=== PATIENT | male | born 1970 | race Hispanic/Latino ===

== ENCOUNTER 2018-01-06 23:45 | Emergency (ER) | payer SELFPAY ==
[2018-01-07 00:06] LABS: #Eosinphils 0.1 thou/uL (0.0-0.7); #Lymphocytes 1.8 thou/uL (1.20-3.40); #Monocytes 0.7 thou/uL (0.11-0.59); #Neutrophils 6.8 thou/uL (1.40-6.50); %Basophils 0.3 % (0.0-1.0); %Eosinophils 0.7 % (0.0-10.0); %Lymphocytes 19.4 % (21.0-51.0); %Monocytes 7.3 % (0.0-10.0); %Neutrophils 72.3 % (42.0-75.0); Hemoglobin 14.6 g/dL (14.0-18.0); Mean Corpuscular HGB CONC 33.4 g/dL (32.0-36.0); Mean Corpuscular Hemoglobin 29.1 pg (27.0-31.0); Mean Corpuscular Volume 87.2 fl (80.0-94.0); Mean Platelet Volume 8.1 fL (7.4-10.4); Platelet Count 215 thou/uL (130-400); RBC Distribution Width 12.1 % (11.5-14.5); Red Blood Cell (RBC) Count 5.02 mill/uL (4.70-6.10); White Blood Cell (WBC) Count 9.4 thou/uL (4.8-10.8)
[2018-01-07 00:27] LABS: ALT (SGPT) 12 U/L (8-55); AST (SGOT) 16 U/L (5-34); Albumin 4.3 g/dL (3.5-5.0); Alkaline Phosphatase 57 U/L (40-150); Anion Gap 15 mmol/L (10-20); BUN (Urea Nitrogen) 11 mg/dL (8.9-20.6); Bilirubin, Total 0.7 mg/dL (0.2-1.2); CK (CPK) 83 U/L (30-200); Calc. Creatinine Clearance 0 mL/min (70-130); Calcium 9.2 mg/dL (7.8-10.44); Carbon Dioxide 25 mmol/L (22-29); Chloride 106 mmol/L (98-107); Estimated GFR-MDRD Greater than 90; Globulin 2.8 g/dL (2.4-3.5); Glucose 132 mg/dL (70-105); Potassium 3.2 mmol/L (3.5-5.1); Protein, Total 7.1 g/dL (6.0-8.3); Sodium 143 mmol/L (136-145)
[2018-01-07 00:30] LABS: CKMB 1.8 ng/mL (0-6.6); Troponin I Less than 0.010 ng/mL (< 0.028)
--- NOTE | 2018-01-07 08:14 | RAD ---
FRONTAL VIEW CHEST: Date: 01/06/18 No prior comparison. INDICATION: Chest pain. FINDINGS: Lungs are hyperinflated and lucent. Cardiac silhouette is within normal limits of size for portable t echnique. There is no consolidation, effusion, or discrete pneumothorax. Leads overlie the chest, hills iting detail. There is mild osseous degenerative change. IMPRESSION: Hyperinflated lucent lungs. Correlate for chronic obstructive airway process. Follow-up with dedicate d 2 view chest may prove useful for further evaluation. POS: JAQUELIN
--- NOTE | 2018-01-19 11:45 | EKG ---
Test Reason : CP Blood Pressure : / mmHG Vent. Rate : 108 BPM Atrial Rate : 108 BPM P-R Int : 134 ms QRS Dur : 080 ms QT Int : 346 ms P-R-T Axes : 044 015 033 degrees QTc Int : 463 ms Sinus tachycardia Otherwise normal ECG Confirmed by NABEEL SOUZA, RILEY Butler ([id number]), business editor DAVID PAYNE ([id number]) on 01/19/2018 11:44:17 AM Referred By: Confirmed By:RILEY LEES MD
== END 2018-01-07 01:30 | disposition home or self-care (01) ==
LOC: ERS 23:45
DX: F41.9 Anxiety disorder, unspecified (principal)
CPT/HCPCS: 71045; 80053; 82553; 84484; 85025; 93005

== ENCOUNTER 2018-01-11 01:46 | Observation (INO) | payer SELFPAY ==
[2018-01-11 02:18] LABS: #Basophils 0.1 thou/uL (0.0-0.2); #Eosinphils 0.1 thou/uL (0.0-0.7); #Lymphocytes 2.4 thou/uL (1.20-3.40); #Monocytes 0.7 thou/uL (0.11-0.59); #Neutrophils 5.7 thou/uL (1.40-6.50); %Basophils 0.8 % (0.0-1.0); %Eosinophils 1.4 % (0.0-10.0); %Lymphocytes 26.7 % (21.0-51.0); %Monocytes 7.9 % (0.0-10.0); %Neutrophils 63.2 % (42.0-75.0); Hemoglobin 14.8 g/dL (14.0-18.0); Mean Corpuscular HGB CONC 34.7 g/dL (32.0-36.0); Mean Corpuscular Hemoglobin 30.5 pg (27.0-31.0); Mean Corpuscular Volume 87.9 fl (80.0-94.0); Mean Platelet Volume 8.4 fL (7.4-10.4); Platelet Count 208 thou/uL (130-400); RBC Distribution Width 12.2 % (11.5-14.5); Red Blood Cell (RBC) Count 4.86 mill/uL (4.70-6.10)
[2018-01-11 02:48] LABS: ALT (SGPT) 14 U/L (8-55); AST (SGOT) 22 U/L (5-34); Albumin 4.4 g/dL (3.5-5.0); Alkaline Phosphatase 59 U/L (40-150); Anion Gap 12 mmol/L (10-20); BUN (Urea Nitrogen) 14 mg/dL (8.9-20.6); Calc. Creatinine Clearance 0 mL/min (70-130); Carbon Dioxide 27 mmol/L (22-29); Chloride 105 mmol/L (98-107); Estimated GFR-MDRD Greater than 90; Globulin 2.6 g/dL (2.4-3.5); Glucose 76 mg/dL (70-105); Potassium 3.4 mmol/L (3.5-5.1); Sodium 141 mmol/L (136-145)
[2018-01-11 02:52] LABS: CKMB 4.4 ng/mL (0-6.6); Troponin I Less than 0.010 ng/mL (< 0.028)
[2018-01-11] MEDS ORDERED: Nitroglycerin 0.4 MG TAB (25 Tab Bottle) ONE (02:53)
[2018-01-11] MEDS ORDERED: Morphine 4 MG/ML VIAL ONE (03:04)
[2018-01-11] MEDS ORDERED: Ondansetron ODT 4 MG TAB SL PRN (04:16)
[2018-01-11] MEDS ORDERED: Ondansetron HCl/PF 4 MG/2 ML Vial IVP PRN ×2 (04:16→04:17)
[2018-01-11] MEDS ORDERED: Acetaminophen 325 MG TAB PO PRN ×2 (04:16→04:17)
[2018-01-11] MEDS ORDERED: Nitroglycerin 0.4 MG TAB (25 Tab Bottle) PO PRN (04:17)
[2018-01-11] MEDS ORDERED: traMADol HCl 50 MG TAB PO PRN (04:17)
[2018-01-11] MEDS ORDERED: Diabetic Tussin 200 MG/10 ML UDCUP PO PRN (04:17)
[2018-01-11] MEDS ORDERED: Loratadine 10 MG TAB PO PRN (04:17)
[2018-01-11] MEDS ORDERED: Lorazepam 1 MG TAB PO PRN (04:17)
[2018-01-11] MEDS ORDERED: Mag-Al 1200 mg/1200 mg/30 ML UDCUP PO PRN (04:17)
[2018-01-11] MEDS ORDERED: Benzonatate 100 MG CAP PO PRN (04:17)
[2018-01-11] MEDS ORDERED: Senokot 8.6 MG TAB PO PRN (04:17)
[2018-01-11] MEDS ORDERED: Calcium Carbonate 500 MG ChewTAB PO PRN (04:17)
[2018-01-11] MEDS ORDERED: Nitroglycerin 0.4 MG TAB (25 Tab Bottle) SL PRN (04:17)
[2018-01-11] MEDS ORDERED: Bisacodyl 5 MG TAB PO PRN (04:17)
[2018-01-11] MEDS ORDERED: hydrALAZINE 20 MG/ML VIAL SLOW IVP PRN (04:17)
[2018-01-11] MEDS ORDERED: cloNIDine 0.1 MG TAB PO PRN (04:17)
[2018-01-11 05:36] LABS: Cardiac Risk 2.8 (Less than 4.5)
[2018-01-11 05:42] LABS: Troponin I Less than 0.010 ng/mL (< 0.028)
--- NOTE | 2018-01-11 05:58 | HP ---
DATE OF ADMISSION: 01/11/2018 PRIMARY CARE PHYSICIAN: None. CHIEF COMPLAINT: Chest pressure and anxiety. HISTORY OF PRESENT ILLNESS: Mr. Vazquez is a 47-year-old male with past medical history of hypertension, currently not on any medications, who presented to the emergency room with above-menti oned complaint. History is mainly obtained by the patient himself. He is a poor historian because o f the language barrier. Electronic medical records have been reviewed and the case has been discusse d with admitting ER physician, Dr. Almanza. According to Mr. Vazquez, he was asleep and he suddenly woke up with the chest pressure-like sensati on. It was associated with some shortness of breath and some numbness, tingling of his fingers. To the ER physician, he reported that he has been having these episodic chest pressure and pain-like sen sation for the last 5 days. He was recently seen in the emergency room and was sent home with ivy henson for anxiety. He reports that he is still having these symptoms and the lorazepam is not working. He otherwise denies any recent illnesses. No nausea, vomiting, diarrhea. No fever, chills, flu-li ke illnesses. He never had any cardiac workup done. He does have some family history of heart disease in his broth er, but is not able to exactly tell me as to what it is. Upon presentation to the emergency room, he was somewhat hypertensive; however, the blood pressure 147/97. His initial workup included a 12-yolanda d EKG, which was negative for any acute changes and cardiac enzymes, which were within normal limit. He is now being admitted for further workup and rule out ACS. He has received aspirin, sublingual n itroglycerin, morphine in the emergency room and is currently symptom free. PAST MEDICAL HISTORY: 1. Anxiety. 2. Hypertension. PAST SURGICAL HISTORY: None reviewed with the patient. PSYCHIATRIC HISTORY: Anxiety. SOCIAL HISTORY: He used to smoke a long time ago, but not anymore. No history of drug or alcohol ab use. FAMILY HISTORY: Significant for heart disease in his brother. ALLERGIES: No known medication allergies. CURRENT MEDICATIONS: Lexapro 10 mg daily and Ativan 1 mg oral every 6 hours as needed. REVIEW OF SYSTEMS: The following complete review of systems was negative, unless otherwise mentioned in the HPI or below: Constitutional: Weight loss or gain, ability to conduct usual activities. Skin: Rash, itching. Eyes: Double vision, pain. ENT/Mouth: Nose bleeding, neck stiffness, pain, tenderness. Cardiovascular: Palpitations, dyspnea on exertion, orthopnea. Respiratory: Shortness of breath, wheezing, cough, hemoptysis, fever or night sweats. Gastrointestinal: Poor appetite, abdominal pain, heartburn, nausea, vomiting, constipation, or diarr hea. Genitourinary: Urgency, frequency, dysuria, nocturia. Musculoskeletal: Pain, swelling. Neurologic/Psychiatric: Anxiety, depression. Allergy/Immunologic: Skin rash, bleeding tendency. It is negative except for those mentioned in the history and physical. PHYSICAL EXAMINATION: VITAL SIGNS: Most recent temperature 97.7, pulse of 92, respirations 18, saturating 97% on room air, blood pressure 141/86. GENERAL: No acute distress, lying comfortably in bed, awake, alert, oriented x3. HEENT: Mucous membrane is moist and pink. No oropharyngeal exudate or erythema. Head is normocepha lic, atraumatic. Pupils equal, reactive to light and accommodation. Extraocular movement intact. NECK: Supple without any lymphadenopathy, JVD or bruit. CHEST: Clear to auscultation without any wheezing, rales, or rhonchi. CARDIOVASCULAR: Rate and rhythm is regular without any murmur, rubs, or gallops. ABDOMEN: Soft, nontender, nondistended with positive bowel sounds. No guarding, rebound or rigidity . No right upper quadrant tenderness. EXTREMITIES: Free of any cyanosis, clubbing, or edema. NEUROLOGIC: Nonfocal. SKIN: Free of any rashes or bruises. Feel warm and dry to touch. PSYCHIATRIC: Normal affect. LABORATORY DATA: CBC is unremarkable. Serum chemistry shows potassium of 3.4, otherwise unremarkabl e. CK-MB 4.4, troponin less than 0.010. Chest x-ray by my review has no evidence to suggest any ple ural effusion, edema, or infiltrate. A 12-lead EKG shows normal sinus rhythm at 87 beats per minute without any acute ST or T-wave changes. IMPRESSION AND PLAN: 1. Chest pain, most likely related to his anxiety. Given some family history and history of untreat ed hypertension: The patient will be admitted under observation status for workup for acute coronary syndrome. We will go ahead and obtain a nuclear medicine stress test and continued to trend serial cardiac enzymes. The patient never had any risk stratification done in the past. Also check a lipid panel. We will add full dose aspirin for now, also add low dose beta patsy to help with his blood pressure and for his cardioprotective effects as well. We will also give him a trial of proton pump inhibitor to see if his symptoms are related to any heartburn, though he denies the symptoms. 2. Anxiety. Use Ativan as needed. We will restart his Lexapro as well. He is encouraged to follow up with the primary care physician after discharge. 3. Deep venous thrombosis and gastrointestinal prophylaxis. 4. Add p.r.n. medication order. DISPOSITION: Mr. Vazquez is being admitted under observation status for chest pain workup and rule out acute coronary syndrome. He is currently hemodynamically stable. Further management will depend upon his clinical course.
[2018-01-11 07:37] LABS: Acetaminophen Less than 6.0 mcg/mL (10.0-30.0); Alcohol Less than 10 mg/dL (Less than 10); Salicylate Less than 8.0 mg/dL (15.0-30.0)
[2018-01-11 08:23] LABS: Troponin I Less than 0.010 ng/mL (< 0.028)
[2018-01-11] MEDS ORDERED: Escitalopram Oxalate 10 mg Tablet PO SCH (09:00)
[2018-01-11] MEDS ORDERED: Metoprolol Tartrate 25 MG TAB PO SCH (09:00)
[2018-01-11] MEDS ORDERED: Enoxaparin Sodium 40 MG/0.4 ML SYRINGE SC SCH (09:00)
[2018-01-11] MEDS ORDERED: Aspirin 325 MG TAB PO SCH (09:00)
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
--- NOTE | 2018-01-11 11:30 | NM ---
MYOCARDIAL PERFUSION STUDY: DATE: 01/11/18. HISTORY: Chest pain. RADIOPHARMACEUTICALS: 33 mCi Technetium 99m sestamibi, IV at stress, and 10.9 mCi Technetium 99m sestamibi, IV at rest. MEDICATIONS: 11.8 mL (35.3 mg) adenosine, IV. FINDINGS: There is distribution of radiotracer seen throughout the left ventricular myocardium on the stress ac quisition. No reversible defects are seen between the stress and resting acquisitions. Quantitative analysis shows no significant reversible defect. Gated images show normal ventricular wall motion a nd wall thickening aside from minimal hyperkinesis in the region of the ventricular septum. The left ventricular ejection fraction is 66%. IMPRESSION: 1. Normal myocardial perfusion study without evidence of a reversible defect seen to suggest ischemi a. 2. Normal left ventricular ejection fraction of 66%. POS: JAQUELIN
--- NOTE | 2018-01-11 11:44 | PDOC.PN ---
- Subjective Encounter Start Date: 01/11/18 Encounter Start Time: 11:00 Subjective: no c/o sob or chest pain now -: feels good -: /family at bedside - Objective MAR Reviewed: Yes Vital Signs & Weight: Vital Signs (12 hours) Temp Pulse Resp BP Pulse Ox 01/11/18 08:00 97.7 F 92 18 01/11/18 07:09 96 01/11/18 04:10 97.7 F 92 18 141/86 H 97 Weight Weight 138 lb Result Diagrams: 01/11/18 02:00 01/11/18 02:00 Phys Exam - Physical Examination HEENT: PERRLA, moist MMs Neck: no JVD, supple Respiratory: no wheezing, no rales Cardiovascular: RRR, no significant murmur Gastrointestinal: soft, non-tender, positive bowel sounds Musculoskeletal: no edema, pulses present Neurological: non-focal, moves all 4 limbs Psychiatric: A&O x 3 Dx/Plan (1) Chest pain Code(s): R07.9 - CHEST PAIN, UNSPECIFIED Status: Acute Qualifiers: Chest pain type: unspecified Qualified Code(s): R07.9 - Chest pain, unspecified (2) HTN (hypertension) Code(s): I10 - ESSENTIAL (PRIMARY) HYPERTENSION Status: Chronic Qualifiers: Hypertension type: essential hypertension Qualified Code(s): I10 - Essential (primary) hypertension (3) Anxiety Code(s): F41.9 - ANXIETY DISORDER, UNSPECIFIED Status: Chronic - Plan hemostable -: stress test is -ve -: counselled to f/u at [facility] reg anxiety issues * . Review of Systems - Medications/Allergies Allergies/Adverse Reactions: Allergies Allergy/AdvReac Type Severity Reaction Status Date / Time No Known Drug Allergies Allergy Verified 01/11/18 04:43 Medications: Current Medications Acetaminophen (Tylenol) 650 mg PO Q4H PRN PRN Reason: Headache/Fever or Pain Al Hydroxide/Mg Hydroxide (Maalox) 30 ml PO Q6H PRN PRN Reason: Heartburn or Indigestion Aspirin (Aspirin) 325 mg PO DAILY [facility] Last Admin: 01/11/18 10:45 Dose: 325 mg Benzonatate (Tessalon) 100 mg PO Q4H PRN PRN Reason: Cough Bisacodyl (Dulcolax) 10 mg PO DAILYPRN PRN PRN Reason: Constipation Calcium Carbonate (Tums) 1,000 mg PO Q4H PRN PRN Reason: Heartburn or Indigestion Clonidine (Catapres) 0.1 mg PO Q4H PRN PRN Reason: Systolic BP > 160 Enoxaparin Sodium (Lovenox) 40 mg SC 0900 [facility] [place] Last Admin: 01/11/18 10:44 Dose: 40 mg Escitalopram Oxalate (Lexapro) 10 mg PO DAILY [facility] [place] Last Admin: 01/11/18 10:45 Dose: 10 mg Guaifenesin (Robitussin Sf) 200 mg PO Q4H PRN PRN Reason: Cough Hydralazine HCl (Apresoline) 10 mg SLOW IVP Q4H PRN PRN Reason: Systolic BP > 180 Loratadine (Claritin) 10 mg PO DAILYPRN PRN PRN Reason: Sinus Symptoms Lorazepam (Ativan) 1 mg PO Q4H PRN PRN Reason: Anxiety/Agitation Metoprolol Tartrate (Lopressor) 12.5 mg PO BID [facility] [place] Last Admin: 01/11/18 10:44 Dose: 12.5 mg Nitroglycerin (Nitrostat) 0.4 mg PO Q5MIN PRN PRN Reason: Chest Pain Nitroglycerin (Nitrostat) 0.4 mg SL Q5MIN PRN PRN Reason: Chest Pain Ondansetron HCl (Zofran) 4 mg IVP Q6H PRN PRN Reason: Nausea/Vomiting Senna (Senokot) 2 tab PO HSPRN PRN PRN Reason: Constipation Sodium Chloride (Flush - Normal Saline) 10 ml IVF Q12HR [facility] [place] Last Admin: 01/11/18 10:45 Dose: 10 ml Sodium Chloride (Flush - Normal Saline) 10 ml IVF PRN PRN PRN Reason: Saline Flush Sodium Chloride (Flush - Normal Saline) 10 ml IVF PRN PRN PRN Reason: Saline Flush Tramadol HCl (Ultram) 50 mg PO Q4H PRN PRN Reason: Moderate Pain (4-6)
[2018-01-11 12:52] VITALS: BP 127/74; TEMP 98.4
[2018-01-11] MEDS ORDERED: ADENOSINE 60 MG/20 ML VIAL ONE (16:42)
--- NOTE | 2018-01-11 21:20 | DIS ---
DATE OF ADMISSION: 01/11/2018 DATE OF DISCHARGE: 01/11/2018 DISCHARGE DISPOSITION: To home. PRIMARY DISCHARGE DIAGNOSIS: Chest pain, which is noncardiac. SECONDARY DISCHARGE DIAGNOSES: Mild hypertension, anxiety/mood disorder. PROCEDURES DONE DURING HOSPITALIZATION: The patient has had 3 sets of troponin done which was negati ve. LDL is 75. Nuclear stress test done showed no reversible or fixed defect. Ejection fraction wa s 66%. Chest x-ray done showed no acute cardiopulmonary process. DISCHARGE MEDICATIONS: The patient to continue his home medication of Lexapro 10 mg p.o. daily. DISCHARGE PLAN: The patient to follow up with primary care physician in 1 week. BRIEF COURSE DURING HOSPITALIZATION: The patient initially got admitted early this morning with comp laints of chest pressure. He also had revealed that he has anxiety issues as well. The patient was placed under observation on telemetry and has had ACS evidence based protocol followed. Three sets o f troponin were negative and a nuclear stress test done showed no reversible ischemia. He has been c ounseled to follow up with his primary care physician in 1 week for further medications and help with his anxiety/mood disorder. His systolic blood pressure has remained around 120s to 140s and no medi cations have been given for the same for now. Please see a face to face documentation on [employer] fo r the day of discharge.
--- NOTE | 2018-03-04 15:26 | STRESS ---
Acquisition Time: 2018-01-11 09:15:21 Total Exercise Time: 00:04:00 Test Indications: CHEST PAIN Medications: Protocol: ADENOSINE Max HR: 108 BPM 62% of Pred: 172 BPM Max BP: 134/062 mmHG Max Work Load: 1.0 METS RESTING ECG: NORMAL SINUS RHYTHM AT 88 BPM WITH INCOMPLETE RIGHT BUNDLE BRANCH BLOCK SYMPTOMS: CHEST PRESSURE, DYSPNEA AND HEADACHE NORMAL BP RESPONSE ECTOPY: NONE ECG STRESS: NO SIGNIFICANT CHANGES INTERPRETATION: NEGATIVE ECG/AWAIT NUCLEAR IMAGES FOR DEFINITIVE DIAGNOSIS Confirmed by MATA ORTIZ ELLEN ([id number]) on 03/04/2018 3:25:35 PM Referred By: MD Herminio HANEY Confirmed By:AMINA ORTIZ PA-C
--- NOTE | 2018-05-30 14:29 | EKG ---
Test Reason : Blood Pressure : / mmHG Vent. Rate : 087 BPM Atrial Rate : 087 BPM P-R Int : 140 ms QRS Dur : 080 ms QT Int : 378 ms P-R-T Axes : 036 018 035 degrees QTc Int : 454 ms Normal sinus rhythm Normal ECG Confirmed by CRISTOBAL MENDEZ MD ([id number]), department editor DAVID PAYNE ([id number]) on 05/30/2018 2:28:35 PM Referred By: Confirmed By:CRISTOBAL MENDEZ MD
== END 2018-01-11 12:51 | disposition home or self-care (01) ==
LOC: ERS 01:46 → 2SW 04:04
PROVIDERS: ADMIT Internal Medicine; ATTEND Internal Medicine
DX: R07.89 Other chest pain (principal); I10 Essential (primary) hypertension; F41.9 Anxiety disorder, unspecified; F39 Unspecified mood [affective] disorder; Z79.899 Other long term (current) drug therapy; Z87.891 Personal history of nicotine dependence; Z82.49 Family history of ischemic heart disease and other diseases of the circulatory system
CPT/HCPCS: 36415; 71045; 78452; 80053; 80061; 80307; 82553; 84484; 85025; 93005; 93017; 94760; 96372; 96374; A4216; A9500; J0153; J1650; J2270

== ENCOUNTER 2018-08-28 06:22 | Emergency (ER) | payer SELFPAY ==
[2018-08-28 07:34] LABS: #Lymphocytes 0.9 thou/uL (1.20-3.40); #Monocytes 0.4 thou/uL (0.11-0.59); %Basophils 0.5 % (0.0-1.0); %Eosinophils 0.5 % (0.0-10.0); %Lymphocytes 13.8 % (21.0-51.0); %Monocytes 5.9 % (0.0-10.0); %Neutrophils 79.2 % (42.0-75.0); Hemoglobin 15.3 g/dL (14.0-18.0); Mean Corpuscular HGB CONC 31.9 g/dL (32.0-36.0); Mean Corpuscular Hemoglobin 28.4 pg (27.0-31.0); Mean Platelet Volume 8.4 fL (7.4-10.4); Platelet Count 247 thou/uL (130-400); RBC Distribution Width 12.2 % (11.5-14.5); Red Blood Cell (RBC) Count 5.39 mill/uL (4.70-6.10); White Blood Cell (WBC) Count 6.4 thou/uL (4.8-10.8)
[2018-08-28] MEDS ORDERED: Lorazepam 2 MG/ML VIAL ONE (07:40)
[2018-08-28 07:59] LABS: Bilirubin Negative (Negative); Blood, Urine Negative (Negative); Clarity CLEAR (Clear); Glucose, Urine (Dipstick) Negative (Negative); Leukocyte Negative (Negative); Nitrite Negative (Negative); Protein, Urine (Dipstick) Negative (Neg-Trace); Specific Gravity, Urine 1.009 (1.002-1.036); Urobilinogen 0.2 mg/dL (0.2-1.0)
[2018-08-28 08:00] LABS: ALT (SGPT) 15 U/L (8-55); AST (SGOT) 18 U/L (5-34); Albumin 4.7 g/dL (3.5-5.0); Alkaline Phosphatase 63 U/L (40-150); Anion Gap 12 mmol/L (10-20); BUN (Urea Nitrogen) 11 mg/dL (8.9-20.6); Bilirubin, Total 0.8 mg/dL (0.2-1.2); CK (CPK) 127 U/L (30-200); Calc. Creatinine Clearance 0 mL/min (70-130); Calcium 9.6 mg/dL (7.8-10.44); Carbon Dioxide 28 mmol/L (22-29); Chloride 103 mmol/L (98-107); Estimated GFR-MDRD Greater than 90; Glucose 141 mg/dL (70-105); Potassium 3.8 mmol/L (3.5-5.1); Protein, Total 7.7 g/dL (6.0-8.3); Sodium 139 mmol/L (136-145)
[2018-08-28 08:03] LABS: Acetaminophen Less than 6.0 mcg/mL (10.0-30.0); Alcohol Less than 10 mg/dL (Less than 10); CKMB 3.2 ng/mL (0-6.6); Salicylate Less than 8.0 mg/dL (15.0-30.0); Troponin I Less than 0.010 ng/mL (< 0.028)
[2018-08-28 08:06] LABS: Amphetamine Not Detected (NotDetected); Barbiturates Screen Not Detected (NotDetected); Benzodiazepine Screen Not Detected (NotDetected); Cocaine Metabolite Screen Not Detected (NotDetected); Medtox Control Line Valid? VALID (VALID); Medtox Reader # READER 1; Methadone Not Detected (NotDetected); Methamphetamine Not Detected (NotDetected); Opiate Screen Not Detected (NotDetected); Oxycodone Screen Not Detected (NotDetected); Phencyclidine (PCP) Not Detected (NotDetected); THC/Cannabinoid Screen Not Detected (NotDetected); Tricyclic Screen Not Detected (NotDetected)
--- NOTE | 2018-08-31 12:17 | EKG ---
Test Reason : DIZZINESS Blood Pressure : / mmHG Vent. Rate : 086 BPM Atrial Rate : 086 BPM P-R Int : 138 ms QRS Dur : 082 ms QT Int : 352 ms P-R-T Axes : 063 045 042 degrees QTc Int : 421 ms Normal sinus rhythm Normal ECG Confirmed by ANTONIETA MORRIS ([id number]), production editor JULIANN MILES ([id number]) on 08/31/2018 12:17:07 PM Referred By: Confirmed By:ANTONIETA MORRIS
== END 2018-08-28 08:34 | disposition home or self-care (01) ==
LOC: ERS 06:22
DX: G47.00 Insomnia, unspecified (principal); F41.9 Anxiety disorder, unspecified; F32.9 Major depressive disorder, single episode, unspecified; Z79.899 Other long term (current) drug therapy
CPT/HCPCS: 80053; 80306; 80307; 81003; 82553; 84484; 85025; 93005; 96361; 96374; J2060

== ENCOUNTER 2019-05-06 01:19 | Emergency (ER) | payer SELFPAY ==
[2019-05-06] MEDS ORDERED: Metoclopramide HCl 10 MG/2 ML VIAL ONE (03:49)
[2019-05-06] MEDS ORDERED: diphenhydrAMINE 50 MG/ML VIAL ONE (03:49)
[2019-05-06] MEDS ORDERED: Acetaminophen 500 MG TAB ONE (03:49)
[2019-05-06 04:06] LABS: #Eosinphils 0.1 thou/uL (0.0-0.7); #Lymphocytes 1.8 thou/uL (1.20-3.40); #Monocytes 0.6 thou/uL (0.11-0.59); #Neutrophils 4.8 thou/uL (1.40-6.50); %Basophils 0.3 % (0.0-1.0); %Eosinophils 1.6 % (0.0-10.0); %Lymphocytes 24.6 % (21.0-51.0); %Monocytes 8.6 % (0.0-10.0); Hemoglobin 14.4 g/dL (14.0-18.0); Mean Corpuscular HGB CONC 32.9 g/dL (32.0-36.0); Mean Corpuscular Hemoglobin 29.2 pg (27.0-31.0); Mean Corpuscular Volume 88.7 fL (78.0-98.0); Platelet Count 196 thou/uL (130-400); RBC Distribution Width 12.1 % (11.5-14.5); Red Blood Cell (RBC) Count 4.92 mill/uL (4.70-6.10); White Blood Cell (WBC) Count 7.3 thou/uL (4.8-10.8)
[2019-05-06 04:28] LABS: ALT (SGPT) 20 U/L (8-55); AST (SGOT) 18 U/L (5-34); Albumin 4.3 g/dL (3.5-5.0); Alkaline Phosphatase 61 U/L (40-150); Anion Gap 12 mmol/L (10-20); BUN (Urea Nitrogen) 14 mg/dL (8.9-20.6); Bilirubin, Total 0.4 mg/dL (0.2-1.2); Calc. Creatinine Clearance 0 mL/min (70-130); Calcium 9.1 mg/dL (7.8-10.44); Carbon Dioxide 28 mmol/L (22-29); Chloride 103 mmol/L (98-107); Estimated GFR-MDRD Greater than 90; Globulin 2.8 g/dL (2.4-3.5); Glucose 126 mg/dL (70-105); Potassium 3.9 mmol/L (3.5-5.1); Protein, Total 7.1 g/dL (6.0-8.3); Sodium 139 mmol/L (136-145)
[2019-05-06 04:32] LABS: Troponin I Less than 0.010 ng/mL (< 0.028)
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
== END 2019-05-06 05:27 | disposition home or self-care (01) ==
LOC: ERS 01:19
DX: R51 Headache (principal)
CPT/HCPCS: 36415; 70450; 80053; 84484; 85025; 93005; 96374; 96375; J1200; J2765

== ENCOUNTER 2019-12-19 09:34 | Outpatient (CLI) | payer OTHER ==
--- NOTE | 2019-12-19 10:40 | ULT ---
US Renal Bilateral STANDARD HISTORY: Urinary complications COMPARISON: None. FINDINGS: The right kidney measures 10 cm in length and the left kidney measures 11.8 cm in length. N o focal mass or hydronephrosis is seen. No shadowing calculi are noted. The urinary bladder has a prevoid volume of 370 cc and a postvoid residual of 311 cc. There is micronodularity in the wall of t he urinary bladder. The prostate measures 2.3 x 3.2 x 2.7 cm IMPRESSION: Further evaluation with cystoscopy is recommended.
== END 2019-12-19 09:35 | disposition home or self-care (01) ==
LOC: BICULT 09:34
PROVIDERS: ATTEND Physician Assistant
DX: N99.89 Other postprocedural complications and disorders of genitourinary system (principal)
CPT/HCPCS: 76770

== ENCOUNTER 2020-01-05 08:25 | Emergency (ER) | payer SELFPAY ==
[2020-01-05 08:57] LABS: #Eosinphils 0.1 thou/uL (0.0-0.7); #Lymphocytes 1.4 thou/uL (1.20-3.40); #Neutrophils 9.7 thou/uL (1.40-6.50); %Basophils 0.2 % (0.0-1.0); %Lymphocytes 11.3 % (21.0-51.0); %Monocytes 7.9 % (0.0-10.0); %Neutrophils 79.7 % (42.0-75.0); Hemoglobin 14.9 g/dL (14.0-18.0); Mean Corpuscular HGB CONC 32.7 g/dL (32.0-36.0); Mean Corpuscular Hemoglobin 28.8 pg (27.0-31.0); Mean Corpuscular Volume 88.1 fL (78.0-98.0); Mean Platelet Volume 8.7 fL (7.4-10.4); Platelet Count 234 thou/uL (130-400); RBC Distribution Width 11.5 % (11.5-14.5); Red Blood Cell (RBC) Count 5.17 mill/uL (4.70-6.10); White Blood Cell (WBC) Count 12.2 thou/uL (4.8-10.8)
[2020-01-05 09:16] LABS: ALT (SGPT) 18 U/L (8-55); AST (SGOT) 24 U/L (5-34); Albumin 4.2 g/dL (3.5-5.0); Alkaline Phosphatase 64 U/L (40-110); Anion Gap 13 mmol/L (10-20); BUN (Urea Nitrogen) 19 mg/dL (8.9-20.6); Bilirubin, Total 0.3 mg/dL (0.2-1.2); Calc. Creatinine Clearance 0 mL/min (70-130); Calcium 9.1 mg/dL (7.8-10.44); Carbon Dioxide 24 mmol/L (22-29); Chloride 107 mmol/L (98-107); Estimated GFR-MDRD Greater than 90; Globulin 3.1 g/dL (2.4-3.5); Glucose 101 mg/dL (70-105); Lipase 23 U/L (8-78); Potassium 4.5 mmol/L (3.5-5.1); Protein, Total 7.3 g/dL (6.0-8.3); Sodium 139 mmol/L (136-145)
[2020-01-05] MEDS ORDERED: Ondansetron ODT 4 MG TAB ONE (11:17)
[2020-01-05] MEDS ORDERED: Dicyclomine 20 MG TAB ONE (11:17)
== END 2020-01-05 11:27 | disposition home or self-care (01) ==
LOC: ERS 08:25
DX: R10.9 Unspecified abdominal pain (principal)
CPT/HCPCS: 36415; 80053; 83605; 83690; 85025; 99284; Q0162

== ENCOUNTER 2020-01-15 03:34 | Emergency (ER) | payer SELFPAY ==
[2020-01-15 04:31] LABS: Bilirubin Negative (Negative); Blood, Urine Negative (Negative); Clarity Clear (Clear); Glucose, Urine (Dipstick) Normal (Negative); Leukocyte Negative Leu/uL (Negative); Nitrite Negative (Negative); Protein, Urine (Dipstick) Negative (Neg-Trace); Urobilinogen Normal mg/dL (Less than 2)
[2020-01-15 04:56] LABS: Anion Gap 12 mmol/L (10-20); BUN (Urea Nitrogen) 10 mg/dL (8.9-20.6); Calc. Creatinine Clearance 0 mL/min (70-130); Calcium 8.9 mg/dL (7.8-10.44); Carbon Dioxide 24 mmol/L (22-29); Chloride 107 mmol/L (98-107); Estimated GFR-MDRD Greater than 90; Glucose 103 mg/dL (70-105); Potassium 3.7 mmol/L (3.5-5.1); Sodium 139 mmol/L (136-145)
== END 2020-01-15 05:09 | disposition home or self-care (01) ==
LOC: ERS 03:34
DX: R33.9 Retention of urine, unspecified (principal)
CPT/HCPCS: 36415; 51702; 80048; 81003

== ENCOUNTER 2020-02-05 11:49 | Emergency (ER) | payer SELFPAY ==
[2020-02-05] MEDS ORDERED: diphenhydrAMINE 50 MG/ML VIAL ONE (12:37)
[2020-02-05] MEDS ORDERED: Metoclopramide HCl 10 MG/2 ML VIAL ONE (12:37)
[2020-02-05 12:58] LABS: #Basophils 0.1 thou/uL (0.0-0.2); #Eosinphils 0.2 thou/uL (0.0-0.7); #Lymphocytes 2.1 thou/uL (1.20-3.40); #Monocytes 0.6 thou/uL (0.11-0.59); #Neutrophils 5.8 thou/uL (1.40-6.50); %Basophils 0.8 % (0.0-1.0); %Eosinophils 1.9 % (0.0-10.0); %Lymphocytes 24.1 % (21.0-51.0); %Monocytes 7.2 % (0.0-10.0); Hemoglobin 14.6 g/dL (14.0-18.0); Mean Corpuscular HGB CONC 34.3 g/dL (32.0-36.0); Mean Corpuscular Hemoglobin 30.1 pg (27.0-31.0); Mean Corpuscular Volume 87.7 fL (78.0-98.0); Mean Platelet Volume 8.9 fL (7.4-10.4); Platelet Count 287 thou/uL (130-400); RBC Distribution Width 11.4 % (11.5-14.5); Red Blood Cell (RBC) Count 4.86 mill/uL (4.70-6.10); White Blood Cell (WBC) Count 8.8 thou/uL (4.8-10.8)
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
[2020-02-05 13:28] LABS: ALT (SGPT) 19 U/L (8-55); AST (SGOT) 17 U/L (5-34); Albumin 4.1 g/dL (3.5-5.0); Alkaline Phosphatase 60 U/L (40-110); Anion Gap 12 mmol/L (10-20); BUN (Urea Nitrogen) 13 mg/dL (8.9-20.6); Bilirubin, Total 0.5 mg/dL (0.2-1.2); Calc. Creatinine Clearance 0 mL/min (70-130); Calcium 9.3 mg/dL (7.8-10.44); Carbon Dioxide 28 mmol/L (22-29); Chloride 103 mmol/L (98-107); Estimated GFR-MDRD Greater than 90; Globulin 3.2 g/dL (2.4-3.5); Glucose 92 mg/dL (70-105); Potassium 3.8 mmol/L (3.5-5.1); Protein, Total 7.3 g/dL (6.0-8.3); Sodium 139 mmol/L (136-145)
[2020-02-05] MEDS ORDERED: Ketorolac Tromethamine 30 MG/ML VIAL ONE (14:41)
[2020-02-05] MEDS ORDERED: Magnesium 2 GM/50 ML BAG (IN WATER) ONE (14:41)
== END 2020-02-05 15:30 | disposition home or self-care (01) ==
LOC: ERS 11:49
DX: R51 Headache (principal)
CPT/HCPCS: 70450; 80053; 85025; 96365; 96367; 96375; J1200; J1885; J2765; J3475

== ENCOUNTER 2020-02-16 02:45 | Emergency (ER) | payer SELFPAY | END 2020-02-16 03:48 | disposition home or self-care (01) | LOC: ERS 02:45 | DX: F43.0 Acute stress reaction (principal); F41.9 Anxiety disorder, unspecified; Z79.899 Other long term (current) drug therapy | CPT/HCPCS: 99281 ==

== ENCOUNTER 2020-03-29 03:28 | Emergency (ER) | payer SELFPAY ==
[2020-03-29 05:31] LABS: Bilirubin Negative (Negative); Blood, Urine Negative (Negative); Clarity Clear (Clear); Glucose, Urine (Dipstick) Normal (Negative); Leukocyte Negative Leu/uL (Negative); Nitrite Negative (Negative); Protein, Urine (Dipstick) Negative (Neg-Trace); Urobilinogen Normal mg/dL (Less than 2)
== END 2020-03-29 06:44 | disposition home or self-care (01) ==
LOC: ERS 03:28
DX: N40.1 Benign prostatic hyperplasia with lower urinary tract symptoms (principal); R33.8 Other retention of urine; G40.909 Epilepsy, unspecified, not intractable, without status epilepticus
CPT/HCPCS: 51702; 81003

== ENCOUNTER 2020-04-13 06:21 | Outpatient (CLI) | payer SELFPAY, OTHER | END 2020-04-13 06:22 | disposition home or self-care (01) | LOC: LABBT 06:21 | PROVIDERS: ATTEND Urology | DX: Z01.812 Encounter for preprocedural laboratory examination (principal); Z11.59 Encounter for screening for other viral diseases; N40.1 Benign prostatic hyperplasia with lower urinary tract symptoms; N13.8 Other obstructive and reflux uropathy; R33.8 Other retention of urine | CPT/HCPCS: 87635; U0003 ==

== ENCOUNTER 2020-04-15 12:11 | Emergency (ER) | payer OTHER, SELFPAY ==
[2020-04-15 14:04] LABS: #Eosinphils 0.1 thou/uL (0.0-0.7); #Lymphocytes 1.3 thou/uL (1.20-3.40); #Monocytes 0.4 thou/uL (0.11-0.59); #Neutrophils 5.9 thou/uL (1.40-6.50); %Basophils 0.1 % (0.0-1.0); %Lymphocytes 17.2 % (21.0-51.0); %Monocytes 5.6 % (0.0-10.0); %Neutrophils 76.1 % (42.0-75.0); Hemoglobin 16.2 g/dL (14.0-18.0); Mean Corpuscular HGB CONC 34.1 g/dL (32.0-36.0); Mean Corpuscular Hemoglobin 29.2 pg (27.0-31.0); Mean Corpuscular Volume 85.6 fL (78.0-98.0); Mean Platelet Volume 8.8 fL (7.4-10.4); Platelet Count 228 thou/uL (130-400); RBC Distribution Width 11.9 % (11.5-14.5); Red Blood Cell (RBC) Count 5.56 mill/uL (4.70-6.10); White Blood Cell (WBC) Count 7.8 thou/uL (4.8-10.8)
[2020-04-15] MEDS ORDERED: Ondansetron ODT 8 MG TAB ONE (14:19)
[2020-04-15 14:24] LABS: ALT (SGPT) 31 U/L (8-55); AST (SGOT) 22 U/L (5-34); Albumin 4.5 g/dL (3.5-5.0); Alkaline Phosphatase 69 U/L (40-110); Anion Gap 12 mmol/L (10-20); BUN (Urea Nitrogen) 16 mg/dL (8.9-20.6); Bilirubin, Total 0.5 mg/dL (0.2-1.2); Calc. Creatinine Clearance 0 mL/min (70-130); Calcium 9.2 mg/dL (7.8-10.44); Carbon Dioxide 28 mmol/L (22-29); Chloride 103 mmol/L (98-107); Estimated GFR-MDRD Greater than 90; Globulin 3.4 g/dL (2.4-3.5); Glucose 104 mg/dL (70-105); Lipase 25 U/L (8-78); Potassium 4.4 mmol/L (3.5-5.1); Protein, Total 7.9 g/dL (6.0-8.3); Sodium 139 mmol/L (136-145)
[2020-04-15 14:52] LABS: Bilirubin Negative (Negative); Blood, Urine Negative (Negative); Clarity Clear (Clear); Glucose, Urine (Dipstick) Normal (Negative); Leukocyte Negative Leu/uL (Negative); Nitrite Negative (Negative); Protein, Urine (Dipstick) 20 mg/dL (Neg-Trace); Urobilinogen Normal mg/dL (Less than 2)
== END 2020-04-15 16:07 | disposition home or self-care (01) ==
LOC: ERS 12:11
DX: R33.9 Retention of urine, unspecified (principal); R11.2 Nausea with vomiting, unspecified
CPT/HCPCS: 36415; 51702; 80053; 81003; 83690; 85025; 87086; Q0162

== ENCOUNTER 2020-05-03 08:07 | Outpatient (CLI) | payer OTHER, SELFPAY ==
--- NOTE | 2020-05-03 14:45 | RAD ---
EXAM: Chest 2 views: HISTORY: Preoperative radiograph COMPARISON: None. FINDINGS: There is a normal-sized cardiomediastinal silhouette. There is no evidence of consolidation, mass, or pleural effusion. The bones are unremarkable. IMPRESSION: No evidence of acute cardiopulmonary disease
[2020-05-03 16:26] LABS: Bacteria/HPF None Seen HPF (None Seen); Bilirubin Negative (Negative); Blood, Urine Negative (Negative); Clarity Clear (Clear); Glucose, Urine (Dipstick) Normal (Negative); Leukocyte Negative Leu/uL (Negative); Nitrite Negative (Negative); Protein, Urine (Dipstick) Negative (Neg-Trace); RBC/HPF 0-3 HPF (0-3); Squamous Epithelial None Seen HPF (0-3); Urobilinogen Normal mg/dL (Less than 2)
[2020-05-03 16:33] LABS: Hemoglobin 15.4 g/dL (14.0-18.0); Mean Corpuscular HGB CONC 33.5 g/dL (32.0-36.0); Mean Corpuscular Hemoglobin 28.9 pg (27.0-31.0); Mean Corpuscular Volume 86.4 fL (78.0-98.0); Mean Platelet Volume 10.2 fL (7.4-10.4); Platelet Count 218 thou/uL (130-400); RBC Distribution Width 11.9 % (11.5-14.5); Red Blood Cell (RBC) Count 5.32 mill/uL (4.70-6.10); White Blood Cell (WBC) Count 6.9 thou/uL (4.8-10.8)
[2020-05-03 16:34] LABS: INR-International Normal Ratio 0.9; PTT 31.6 sec (22.9-36.1); Prothrombin Time 12.2 sec (12.0-14.7)
[2020-05-03 16:49] LABS: Anion Gap 13 mmol/L (10-20); BUN (Urea Nitrogen) 17 mg/dL (8.9-20.6); Calc. Creatinine Clearance 0 mL/min (70-130); Calcium 9.4 mg/dL (7.8-10.44); Carbon Dioxide 27 mmol/L (22-29); Chloride 105 mmol/L (98-107); Estimated GFR-MDRD 90; Glucose 114 mg/dL (70-105); Potassium 4.3 mmol/L (3.5-5.1); Sodium 141 mmol/L (136-145)
[2020-05-04 12:19] LABS: SARS-CoV-2 MS2 Positive; SARS-CoV-2 N Gene Negative; SARS-CoV-2 S Gene Negative; SARS-CoV-2 orf1ab Negative
--- NOTE | 2020-05-05 18:04 | EKG ---
Test Reason : Blood Pressure : / mmHG Vent. Rate : 105 BPM Atrial Rate : 105 BPM P-R Int : 142 ms QRS Dur : 078 ms QT Int : 336 ms P-R-T Axes : 060 054 050 degrees QTc Int : 444 ms Sinus tachycardia Otherwise normal ECG Confirmed by HUANG QUISPE ([id number]) on 05/05/2020 6:04:35 PM Referred By: DELFINO Confirmed By:HUANG QUISPE
== END 2020-05-03 08:08 | disposition home or self-care (01) ==
LOC: LABBT 08:07
PROVIDERS: ATTEND Urology
DX: Z01.818 Encounter for other preprocedural examination (principal); Z11.59 Encounter for screening for other viral diseases; N40.1 Benign prostatic hyperplasia with lower urinary tract symptoms
CPT/HCPCS: 71046; 80048; 81001; 85027; 85610; 85730; 87086; 87635; 93005; 93010; U0003

== ENCOUNTER 2020-05-06 08:41 | Day surgery (SDC) | payer OTHER, SELFPAY ==
[2020-04-30 11:36] VITALS: BMI 26.4
[2020-05-06] MEDS ORDERED: Levofloxacin 500 mg/D5W 100 ml Premix Bag ONE (09:45)
[2020-05-06] MEDS ORDERED: PHENYLEPHRINE-NS 100 MCG/ML 10 ML SYRINGE ONE (10:04)
[2020-05-06] MEDS ORDERED: Glycopyrrolate 0.2 MG/ML 5 ML SYRINGE ONE (10:04)
[2020-05-06] MEDS ORDERED: PROPOFOL 200 MG/20 ML VIAL ONE (10:04)
[2020-05-06] MEDS ORDERED: Succinylcholine Chloride 20 MG/ML 10 ml SYRINGE FS ONE (10:04)
[2020-05-06] MEDS ORDERED: Lidocaine 1% PF 5 ML VIAL ONE (10:04)
[2020-05-06] MEDS ORDERED: Dexamethasone 20 MG/5 ML VIAL ONE (10:04)
[2020-05-06] MEDS ORDERED: Ondansetron PF 4 MG/2 ML Vial ONE (10:04)
[2020-05-06] MEDS ORDERED: Rocuronium Bromide 10 MG/ML (10ML VIAL) ONE (10:04)
[2020-05-06] MEDS ORDERED: B & O ONE (10:48)
[2020-05-06] MEDS ORDERED: Midazolam HCl 2 mg/2 ml Vial ONE (10:52)
[2020-05-06] MEDS ORDERED: Fentanyl 100 MCG/2 ML VIAL ONE (10:52)
[2020-05-06] MEDS ORDERED: diphenhydrAMINE 25 MG CAP PO PRN (12:29)
[2020-05-06] MEDS ORDERED: hydrALAZINE 20 MG/ML VIAL SLOW IVP PRN (12:29)
[2020-05-06] MEDS ORDERED: Oxybutynin 5 MG TAB PO PRN (12:29)
[2020-05-06] MEDS ORDERED: Morphine 2 MG/ML VIAL SLOW IVP PRN (12:29)
[2020-05-06] MEDS ORDERED: Bisacodyl 10 MG SUPP PR PRN (12:29)
[2020-05-06] MEDS ORDERED: Mag-Al 1200 mg/1200 mg/30 ML UDCUP PO PRN (12:29)
[2020-05-06] MEDS ORDERED: Phenazopyridine HCl 97.5 MG TABLET PO PRN (12:29)
[2020-05-06] MEDS ORDERED: Hyoscyamine Sulfate SL 0.125 mg Tablet SL PRN (12:29)
[2020-05-06] MEDS ORDERED: traMADol HCl 50 MG TAB PO PRN (12:32)
[2020-05-06] MEDS ORDERED: Acetaminophen 325 MG TAB PO PRN (12:32)
[2020-05-06] MEDS ORDERED: Promethazine HCl 25 MG/ML VIAL IM PRN (12:42)
[2020-05-06] MEDS ORDERED: PACU-Morphine 4MG/ML VIAL SLOW IVP PRN (12:42)
[2020-05-06] MEDS ORDERED: Ondansetron HCl/PF 4 MG/2 ML Vial IVP PRN (12:42)
[2020-05-06] MEDS ORDERED: Promethazine HCl 25 MG/ML VIAL SLOW IVP PRN (12:42)
--- NOTE | 2020-05-06 18:27 | OP ---
DATE OF PROCEDURE: 05/06/2020 SERVICE: Urology. PREOPERATIVE DIAGNOSIS: Benign prostatic hyperplasia with urinary obstruction. POSTOPERATIVE DIAGNOSIS: Urethral stricture with benign prostatic hyperplasia and urinary obstruction. PROCEDURE PERFORMED: Direct vision internal urethrotomy with balloon dilation of urethral stricture along with transurethral vaporization of the prostate. INDICATIONS FOR PROCEDURE: Mr. George Langley is a 49-year-old male, who presented to me originally with a history of urinary retention. He had a Perez catheter placed at that time, but partially passed a void trial in the office. His outpatient cystoscopy demonstrated BPH. We had talked to him about transurethral vaporization of prostate, which he agreed to. He had a catheter replaced at that time and we kept in until the date of surgery. All risks and benefits of the surgery were discussed and he has agreed to proceed forward. DESCRIPTION OF PROCEDURE: After identification of armband and verification of consent, the patient was brought back to the operating room, where he underwent general anesthesia with endotracheal intubation. He was then placed in dorsal lithotomy position and prepped and draped in usual sterile fashion. After appropriate time-out, a lubricated 26-Bolivian resectoscope with visual obturator was passed through the urethra, but there was a concentric stricture, which was narrow enough for a flexible cystoscope or catheter to pass through, but not wide enough to allow passage of the resectoscope sheath. After several attempts to pass through this, I did not feel that it would be safe to try to force the way through. Therefore, we switched out to urethrotome with cold knife to perform a DVIU. Incision was made at 12 o'clock, 9 o'clock, 3 o'clock and 6 o'clock to open the stricture concentrically. Repeat attempts at passing the resectoscope sheath with visual obturator was then still unsuccessful. At this point, a rigid cystoscope was brought in, and using a NephroMax balloon dilator, a dilator was positioned over the stricture and inflated up to 30-Bolivian for a 12-cm diameter. This was at approximately 14 mmHg. This was held in place for approximately 30 seconds and then taken down. The cystoscope and balloon dilator were then removed, and the resectoscope sheath with visual obturator was then passed back into the urethra. There was still resistance significantly at the level of the stricture. However, we were able to navigate past that all the way up into the bladder. At that point, the prostate was hypertrophic, but had an extremely high bladder neck as had been demonstrated on outpatient cystoscopy. Before switching out to the vaporization, A full cystoscopy was performed due to some abnormal lesions being noted in the patient's bladder previously. Upon full inspection of the bladder, there was noted to be a moderate amount of inflammation on the posterior bladder wall, but nothing that appeared consistent with the tumor. After thorough inspection, both ureters in the orthotopic location, there were no tumors or stones. I did feel relatively satisfied that the mass or lesion that had been seen on outpatient cystoscopy was likely inflammatory secondary to indwelling catheter. This had now resolved, and with a high-definition scope, there is nothing abnormal. I did not feel a bladder biopsy or resection was necessary. The visual obturator was switched out for the wide bipolar plasma button for vaporization. Vaporization was started at the bladder neck and carried back to the verumontanum circumferentially. This did open up the prostate, but the most majority obstruction was at the bladder neck. Relaxing incisions were made at 5 and 7 o'clock and the intervening tissue vaporized. Upon completion, the bladder neck was completely wide open. The intervening prostate tissues were vaporized until there was a wide-open passage from the bladder neck to the verumontanum. Care was taken not to vaporize past the verumontanum. Meticulous hemostasis was then performed with the coag function. Upon completion, there were no prostate specimens due to vaporization. Both ureters in the orthotopic location unharmed. The bladder looked to be in good shape. The resectoscope was then withdrawn. The area of the dilation was noted to be having some bleeding, but otherwise looked relatively well open without any significant tissue injury. The resectoscope was then removed and a 20-Bolivian 3-way Perez catheter was placed with ease into the bladder. 30 mL of sterile water was placed into the balloon. CBI was initiated and a gravity bag attached. A B and O suppository was placed in the patient's rectum. He was taken out of positioning, had a StatLock attached, and was then transferred to PACU for recovery in stable condition. COMPLICATIONS: None. ESTIMATED BLOOD LOSS: Minimal. RETAINED TUBES AND DRAINS: 20-Bolivian 3-way Perez catheter on CBI. SPECIMENS: None. DISPOSITION: The patient will go to the hospital for CBI. We will plan to stop the CBI in the morning, but he will need to be discharged home with a catheter due to the dilation and DVIU which took place in his urethra. Once he has fully healed, we will monitor on the outpatient status to make sure his urethral strictures not recur or become worse. Job ID: [id number]
[2020-05-06] MEDS: Ondansetron PF 4 MG/2 ML Vial IVP PRN (19:27)
[2020-05-06] MEDS: Docusate 100 MG CAP PO SCH (19:27)
[2020-05-07] MEDS: Docusate 100 MG CAP PO SCH (08:19)
[2020-05-07] MEDS: Ondansetron PF 4 MG/2 ML Vial IVP PRN (09:41)
--- NOTE | 2020-05-07 10:38 | PRG ---
DATE OF SERVICE: 05/07/2020 SUBJECTIVE: The patient states he is feeling good. He has no complaints overnight. His urine has been draining relatively clear. He denies any bladder spasms, chest pain, or shortness of breath. OBJECTIVE: VITAL SIGNS: Temperature 98.1, pulse 93, respirations 14, blood pressure 115/75, and saturation 96% on room air. GENERAL: No apparent distress. Awake and alert. CARDIOVASCULAR: Regular rate and rhythm. : Perez catheter in place, draining clear yellow urine. CBI is off. EXTREMITIES: No edema. ASSESSMENT AND PLAN: A 49-year-old male with benign prostatic hypertrophy and urethral stricture status post direct vision internal urethrotomy and balloon dilation and transurethral vaporization of prostate, postoperative day 1. He has recovered very well because of his direct vision internal urethrotomy and balloon dilation of the urethra. I do recommend he keep the catheter in. I have gone over this with him and he is well aware of how to take care of the catheter given that he has had one previously. As such, he will be discharged with his Perez catheter and I will see him in 2 weeks with a nursing voiding trial in 1 week. I have gone over all of his discharge instructions otherwise. All his prescription has been sent in. Job ID: [id number]
[2020-05-07 11:43] VITALS: BP 129/82; TEMP 97.9
--- NOTE | 2020-05-07 13:56 | DIS ---
DATE OF ADMISSION: 05/06/2020 DATE OF DISCHARGE: 05/07/2020 DISCHARGING PHYSICIAN: Abdelrahman Severino MD ADMITTING DIAGNOSIS: Benign prostatic hyperplasia. DISCHARGE DIAGNOSES: 1. Benign prostatic hyperplasia. 2. Urethral stricture. PROCEDURE PERFORMED: Transurethral vaporization of prostate and direct visual internal urethrotomy. BRIEF HISTORY: Mr. George Langlye is a 49-year-old male, who presented to me with urinary retention. We discussed transurethral vaporization of prostate , and after all discussion of risks and benefits, he has agreed to proceed. The full H and P can be found in the scanned portion of the [employer] system. HOSPITAL COURSE: After surgery (please see operative note for details), the patient was kept in the hospital overnight for CBI and Perez catheter. His CBI was stopped in the morning. He did not have any issues overnight. His urine remained extremely clear off the CBI. He had minimal to no pain. He was doing extremely well. He already is aware of how to take care of a catheter given that he has had one before. Therefore, he was discharged home. DISPOSITION: Discharged to home. DISCHARGE CONDITION: Good. DISCHARGE MEDICATIONS: No home medications; the patient will take just for postoperative care. 1. Tramadol. 2. Pyridium. 3. Oxybutynin. 4. Colace. Followup will be in 1 week with my nurse for a void trial and 2 weeks with me for postop check. Job ID: [id number]
== END 2020-05-07 12:55 | disposition home or self-care (01) ==
LOC: SDC 08:41 → SURG A 14:20 → SDC 05-07 12:55
PROVIDERS: ATTEND Urology
PROC: 0V507ZZ Destruction of Prostate, Via Natural or Artificial Opening (ICD-10-PCS; principal; 2020-05-06)
PROC: 0TND8ZZ Release Urethra, Via Natural or Artificial Opening Endoscopic (ICD-10-PCS; principal; 2020-05-06)
DX: N40.1 Benign prostatic hyperplasia with lower urinary tract symptoms (principal); N13.8 Other obstructive and reflux uropathy; R33.8 Other retention of urine; N35.919 Unspecified urethral stricture, male, unspecified site; N30.90 Cystitis, unspecified without hematuria
CPT/HCPCS: J1100; J1956; J2250; J2405; J2704; J3010

== ENCOUNTER 2022-03-09 01:00 | Emergency (ER) | payer SELFPAY ==
[2022-03-09] MEDS ORDERED: Lidocaine Viscous Sol 2% 15 ml UD Cup ONE (01:45)
[2022-03-09] MEDS ORDERED: Mag-Al 1200 mg/1200 mg/30 ML UDCUP ONE (01:45)
[2022-03-09 01:59] LABS: #Eosinphils 0.1 thou/uL (0.0-0.7); #Monocytes 0.5 thou/uL (0.11-0.59); #Neutrophils 3.1 thou/uL (1.40-6.50); %Basophils 0.7 % (0.0-1.0); %Eosinophils 1.9 % (0.0-10.0); %Lymphocytes 34.5 % (21.0-51.0); %Monocytes 8.8 % (0.0-10.0); %Neutrophils 54.2 % (42.0-75.0); Hemoglobin 13.6 g/dL (14.0-18.0); Mean Corpuscular HGB CONC 33.8 g/dL (32.0-36.0); Mean Corpuscular Hemoglobin 30.5 pg (27.0-31.0); Mean Corpuscular Volume 90.5 fL (78.0-98.0); Mean Platelet Volume 8.3 fL (7.4-10.4); Platelet Count 197 thou/uL (130-400); RBC Distribution Width 11.8 % (11.5-14.5); Red Blood Cell (RBC) Count 4.47 mill/uL (4.70-6.10); White Blood Cell (WBC) Count 5.8 thou/uL (4.8-10.8)
[2022-03-09 02:23] LABS: ALT (SGPT) 12 U/L (8-55); AST (SGOT) 18 U/L (5-34); Alkaline Phosphatase 58 U/L (40-110); Anion Gap 10 mmol/L (10-20); BUN (Urea Nitrogen) 20 mg/dL (8.4-25.7); Bilirubin, Total 0.2 mg/dL (0.2-1.2); Calc. Creatinine Clearance 0 mL/min (70-130); Calcium 8.3 mg/dL (7.8-10.44); Carbon Dioxide 25 mmol/L (22-29); Chloride 109 mmol/L (98-107); Globulin 2.5 g/dL (2.4-3.5); Glucose 106 mg/dL (70-105); Lipase 33 U/L (8-78); Protein, Total 6.5 g/dL (6.0-8.3); Sodium 140 mmol/L (136-145)
[2022-03-09] MEDS ORDERED: Pantoprazole 40 MG VIAL ONE (02:54)
== END 2022-03-09 03:02 | disposition home or self-care (01) ==
LOC: ERS 01:00
DX: R07.89 Other chest pain (principal); R10.816 Epigastric abdominal tenderness; G40.909 Epilepsy, unspecified, not intractable, without status epilepticus
CPT/HCPCS: 36415; 71045; 80053; 83690; 84484; 85025; 93005; 96374; C9113

== ENCOUNTER 2022-04-20 15:01 | Outpatient (CLI) | payer SELFPAY ==
[2022-04-20 15:41] LABS: Bilirubin Neg (Negative); Blood, Urine Negative (Negative); Clarity Clear (Clear); Glucose, Urine (Dipstick) Normal (Negative); Ketone, Urine Negative (Negative); Leukocyte Negative (Negative); Nitrite Negative (Negative); Protein, Urine (Dipstick) 15 mg/dl (Neg-Trace); Urobilinogen Normal mg/dL (Less than 2)
[2022-04-20 15:44] LABS: Hemoglobin 13.2 g/dL (13.5-17.5); Mean Corpuscular HGB CONC 32.3 g/dL (32.0-36.0); Mean Corpuscular Hemoglobin 28.4 pg (27.0-33.0); Mean Platelet Volume 11.4 fl (7.4-10.4); Platelet Count 242 10x3/uL (150-450); RBC Distribution Width 12.5 % (11.5-14.5); Red Blood Cell (RBC) Count 4.65 10x6/uL (4.32-5.72); White Blood Cell (WBC) Count 9.1 10x3/uL (3.5-10.5)
[2022-04-20 15:54] LABS: Bacteria/HPF 1+ HPF (None Seen); RBC/HPF 0-3 HPF (0-3); Squamous Epithelial 0-3 HPF (0-3); WBC/HPF 0-3 HPF (0-3)
[2022-04-20 15:55] LABS: Mucous/LPF 3+ LPF (<2+)
[2022-04-20 16:00] LABS: Anion Gap 14 mmol/L (10-20); BUN (Urea Nitrogen) 21 mg/dL (8.4-25.7); Calc. Creatinine Clearance 0 mL/min (70-130); Calcium 8.9 mg/dL (7.8-10.44); Carbon Dioxide 23 mmol/L (22-29); Chloride 112 mmol/L (98-107); Glucose 66 mg/dL (70-105); Potassium 4.6 mmol/L (3.5-5.1); Sodium 144 mmol/L (136-145)
== END 2022-04-20 15:02 | disposition home or self-care (01) ==
LOC: LABBT 15:01
PROVIDERS: ATTEND Urology
DX: Z01.818 Encounter for other preprocedural examination (principal); N35.919 Unspecified urethral stricture, male, unspecified site; Z20.822 Contact with and (suspected) exposure to COVID-19
CPT/HCPCS: 80048; 81001; 85027; 87086; 93005; 93010; U0003; U0005

== ENCOUNTER 2022-05-04 10:44 | Outpatient (CLI) | payer SELFPAY ==
[2022-05-04 11:57] LABS: Bilirubin Neg (Negative); Blood, Urine Negative (Negative); Clarity Clear (Clear); Glucose, Urine (Dipstick) Normal (Negative); Ketone, Urine Negative (Negative); Leukocyte Negative (Negative); Nitrite Negative (Negative); Protein, Urine (Dipstick) 15 mg/dl (Neg-Trace); Specific Gravity, Urine 1.025 (1.002-1.036); Urobilinogen Normal mg/dL (Less than 2)
[2022-05-04 11:59] LABS: Hemoglobin 13.7 g/dL (13.5-17.5); Mean Corpuscular HGB CONC 32.8 g/dL (32.0-36.0); Mean Corpuscular Volume 88.6 fl (81.2-95.1); Mean Platelet Volume 11.4 fl (7.4-10.4); Platelet Count 238 10x3/uL (150-450); RBC Distribution Width 12.7 % (11.5-14.5); Red Blood Cell (RBC) Count 4.72 10x6/uL (4.32-5.72); White Blood Cell (WBC) Count 8.1 10x3/uL (3.5-10.5)
[2022-05-04 12:10] LABS: Bacteria/HPF None Seen HPF (None Seen); Mucous/LPF 1+ LPF (<2+); RBC/HPF 0-3 HPF (0-3); Squamous Epithelial None Seen HPF (0-3); WBC/HPF 0-3 HPF (0-3)
[2022-05-04 12:25] LABS: Anion Gap 14 mmol/L (10-20); BUN (Urea Nitrogen) 17 mg/dL (8.4-25.7); Calc. Creatinine Clearance 0 mL/min (70-130); Calcium 8.9 mg/dL (7.8-10.44); Carbon Dioxide 24 mmol/L (22-29); Chloride 107 mmol/L (98-107); Estimated GFR 96; Glucose 81 mg/dL (70-105); Potassium 4.3 mmol/L (3.5-5.1); Sodium 141 mmol/L (136-145)
== END 2022-05-04 10:45 | disposition home or self-care (01) ==
LOC: LABBT 10:44
PROVIDERS: ATTEND Urology
DX: Z01.818 Encounter for other preprocedural examination (principal); Z20.822 Contact with and (suspected) exposure to COVID-19
CPT/HCPCS: 80048; 81001; 85027; 87086; 87811; 93005; 93010

== ENCOUNTER 2022-05-05 08:34 | Day surgery (SDC) | payer OTHER ==
[2022-05-04 09:45] VITALS: BMI 23.9
[2022-05-05] MEDS ORDERED: Ioversol 68 % 50 ML VIAL ONE (09:25)
[2022-05-05] MEDS ORDERED: Bupivacaine 0.25% HCL 30 ML VIAL ONE (09:25)
[2022-05-05] MEDS ORDERED: fentaNYL Citrate/PF 100 MCG/2 ML SYRINGE ONE ×2 (09:26)
[2022-05-05] MEDS ORDERED: Lidocaine 1% (PF) 30 ML VIAL ONE (09:35)
[2022-05-05] MEDS ORDERED: Chlorhexidine Gluconate 15 ML UDCUP SSP ONE (09:35)
[2022-05-05] MEDS ORDERED: Sodium Chloride 0.9% 100 ML ONE (10:05)
[2022-05-05] MEDS ORDERED: CEFAZOLIN 2 GM VIAL ONE (10:05)
[2022-05-05] MEDS ORDERED: Glycopyrrolate 0.2 MG/ML 5 ML SYRINGE ONE (10:15)
[2022-05-05] MEDS ORDERED: Ondansetron PF 4 MG/2 ML Vial ONE (10:15)
[2022-05-05] MEDS ORDERED: Dexamethasone 20 MG/5 ML VIAL ONE (10:15)
[2022-05-05] MEDS ORDERED: Rocuronium Bromide 10 MG/ML (10ML VIAL) ONE (10:15)
[2022-05-05] MEDS ORDERED: Ketorolac Tromethamine 30 MG/ML VIAL ONE (10:15)
[2022-05-05] MEDS ORDERED: PROPOFOL 200 MG/20 ML VIAL ONE (10:15)
[2022-05-05] MEDS ORDERED: Lidocaine 1% PF 5 ML VIAL ONE (10:15)
[2022-05-05] MEDS ORDERED: ePHEDrine 50 MG/ML VIAL ONE (10:15)
[2022-05-05] MEDS ORDERED: Bacitracin Zinc Ointment 30 gm TUBE ONE (12:08)
[2022-05-05] MEDS ORDERED: Fentanyl 100 MCG/2 ML VIAL ONE ×2 (12:55→13:04)
== END 2022-05-05 13:24 | disposition home or self-care (01) ==
LOC: SDC 08:34
PROVIDERS: ATTEND Urology
PROC: 0VTTXZZ Resection of Prepuce, External Approach (ICD-10-PCS; principal; 2022-05-05)
DX: N35.914 Unspecified anterior urethral stricture, male (principal)
CPT/HCPCS: 51610; 74450; 76000; J0690; J1100; J1885; J2001; J2405; J2704; J3010; J3490; Q9967; S0020

== ENCOUNTER 2022-05-13 05:08 | Emergency (ER) | payer SELFPAY | END 2022-05-13 06:50 | disposition home or self-care (01) | LOC: ERS 05:08 | DX: R20.2 Paresthesia of skin (principal) | CPT/HCPCS: 99281 ==

== ENCOUNTER 2022-11-30 13:03 | Outpatient (CLI) | payer OTHER | END 2022-11-30 13:04 | disposition home or self-care (01) | LOC: RAD 13:03 | PROVIDERS: ATTEND Urology | DX: N35.912 Unspecified bulbous urethral stricture, male (principal) | CPT/HCPCS: 51610; 74450 ==

== ENCOUNTER 2023-02-22 14:23 | Emergency (ER) | payer SELFPAY ==
[2023-02-22 15:01] LABS: #Basophils 0.1 thou/uL (0.0-0.2); #Eosinphils 0.1 thou/uL (0.0-0.7); #Lymphocytes 2.1 thou/uL (1.20-3.40); #Monocytes 0.6 thou/uL (0.11-0.59); #Neutrophils 4.7 thou/uL (1.40-6.50); %Basophils 0.7 % (0.0-1.0); %Eosinophils 1.3 % (0.0-10.0); %Lymphocytes 28.1 % (21.0-51.0); %Monocytes 7.4 % (0.0-10.0); %Neutrophils 62.4 % (42.0-75.0); Hemoglobin 15.8 g/dL (14.0-18.0); Mean Corpuscular HGB CONC 33.6 g/dL (32.0-36.0); Mean Corpuscular Volume 89.4 fl (78.0-98.0); Platelet Count 255 10x3/uL (130-400); RBC Distribution Width 11.8 % (11.5-14.5); Red Blood Cell (RBC) Count 5.27 mill/uL (4.70-6.10); White Blood Cell (WBC) Count 7.6 10x3/uL (4.8-10.8)
[2023-02-22 15:24] LABS: ALT (SGPT) 13 U/L (8-55); AST (SGOT) 18 U/L (5-34); Albumin 4.5 g/dL (3.5-5.0); Alkaline Phosphatase 66 U/L (40-110); Anion Gap 13 mmol/L (10-20); BUN (Urea Nitrogen) 10 mg/dL (8.4-25.7); Bilirubin, Total 0.4 mg/dL (0.2-1.2); Calc. Creatinine Clearance 0 mL/min (70-130); Calcium 9.2 mg/dL (7.8-10.44); Carbon Dioxide 23 mmol/L (22-29); Chloride 108 mmol/L (98-107); Estimated GFR 104; Globulin 3.3 g/dL (2.4-3.5); Glucose 90 mg/dL (70-105); Potassium 3.9 mmol/L (3.5-5.1); Protein, Total 7.8 g/dL (6.0-8.3); Sodium 140 mmol/L (136-145)
[2023-02-22 18:30] LABS: Bilirubin Negative (Negative); Blood, Urine Negative (Negative); Clarity Clear (Clear); Glucose, Urine (Dipstick) Normal (Negative); Ketone, Urine Negative (Negative); Leukocyte Negative Leu/uL (Negative); Nitrite Negative (Negative); Protein, Urine (Dipstick) Negative (Neg-Trace); Urobilinogen Normal mg/dL (Less than 2); pH, Urine 5.5 (5.0-9.0)
== END 2023-02-22 18:23 | disposition home or self-care (01) ==
LOC: ERS 14:23
DX: N99.89 Other postprocedural complications and disorders of genitourinary system (principal)
CPT/HCPCS: 36415; 80053; 81003; 85025; 99283